=== PATIENT | female | born 1965 | race Two or more races ===

== ENCOUNTER 2024-05-09 17:37 | Emergency (ER) | payer MEDICAID, OTHER ==
[~2024-05-09] VITALS: Ht 162.6 cm; Wt 83.4 kg
[2024-05-09] MEDS ORDERED: cloNIDine HCL 0.1 MG TAB PO ONE (18:15)
[2024-05-09 18:18] VITALS: PULSE 91; RESP 18; O2SAT 97
[2024-05-09] MEDS: ALPRAZolam 0.5 MG TAB PO ONE (18:26)
[2024-05-09 18:45] LABS: Basophils # (auto) 0 10 ^3/uL (0-0.2); Basophils % (auto) 0.6 % (0.0-2.0); Eosinophils # (auto) 0 10 ^3/uL (0-0.8); Eosinophils % (auto) 0.4 % (0.0-7.0); Hematocrit 36.3 % (36.0-46.0); Hemoglobin 12.4 g/dL (12.2-16.2); Lymphocytes # (auto) 1.4 10 ^3/uL (0.4-5.4); Lymphocytes % (auto) 28.6 % (10.0-50.0); Mean Corpuscular Hemoglobin 30.8 pg (28.0-32.0); Mean Corpuscular Volume 90.7 fL (80.0-100.0); Monocytes # (auto) 0.4 10 ^3/uL (0-1.3); Monocytes % (auto) 8.4 % (0.0-12.0); Neutrophils # (auto) 2.9 10 ^3/uL (1.6-8.6); Nucleated Red Blood Cells % 0.1 %; Red Cell Distribution Width 15.3 % (11.8-14.3); White Blood Cell 4.7 10^3/uL (4.4-10.8)
[2024-05-09 19:03] LABS: Chloride 110 mmol/L (98-107); Potassium 3.6 mmol/L (3.5-5.1); Sodium 141 mmol/L (136-145)
[2024-05-09 19:04] LABS: Anion Gap 7 (5-15); Calcium 9.5 mg/dL (8.7-10.4); Carbon Dioxide 24 mmol/L (20-30)
[2024-05-09 19:09] LABS: BUN/Creatinine Ratio 10.4 (10.0-20.0); Blood Urea Nitrogen 11 mg/dL (9-23); Glucose 100 mg/dL (74-106)
[2024-05-09] MEDS: cloNIDine HCL 0.1 MG TAB PO ONE (22:04)
[2024-05-09 23:06] LABS: Urine Bacteria None Seen /hpf (None Seen)
[2024-05-09 23:16] LABS: Urine Blood Negative /uL (Negative); Urine Clarity Clear (Clear); Urine Color Light-Yellow (Yellow); Urine Mucus FEW (None Seen); Urine Protein, UAD 1+ (Negative); Urine Specific Gravity 1.022 (1.001-1.035); Urine Urobilinogen Normal (Negative); Urine WBC 1 /hpf (0 - 5); Urine pH 6.5 (5.0-9.0)
[2024-05-10] MEDS ORDERED: CLON0.2T PO (00:01)
[2024-05-10 00:12] VITALS: BP 138/93; PULSE 69; RESP 18; TEMP 98.2; O2SAT 97
== END 2024-05-10 00:12 | disposition home or self-care (01) ==
LOC: ER 17:52
DX: F12.929 Cannabis use, unspecified with intoxication, unspecified (principal); I10 Essential (primary) hypertension; E66.01 Morbid (severe) obesity due to excess calories; Z68.31 Body mass index [BMI] 31.0-31.9, adult
CPT/HCPCS: 36415; 80048; 81001; 84484; 85025

== ENCOUNTER 2024-08-03 17:33 | Emergency (ER) | payer MEDICAID ==
[~2024-08-03] VITALS: Ht 162.6 cm; Wt 86.5 kg
[~2024-08-03 17:33] MED LIST: CLON0.2T PO
[2024-08-03] MEDS: cloNIDine HCL 0.1 MG TAB PO ONE (17:50)
[2024-08-03] MEDS: cloNIDine HCL 0.1 MG TAB ONE (17:50)
[2024-08-03] MEDS ORDERED: AMLO1TAB22 PO (19:53)
[2024-08-03] MEDS ORDERED: HYDR12.59 PO (19:53)
[2024-08-03] MEDS ORDERED: ALLO300T2 PO (19:53)
[2024-08-03] MEDS ORDERED: COLC1CAP PO (19:53)
[2024-08-03 20:01] VITALS: BP 171/94; PULSE 62; RESP 18; TEMP 96.6; O2SAT 98
== END 2024-08-03 20:12 | disposition home or self-care (01) ==
LOC: ER 17:33
DX: M10.9 Gout, unspecified (principal); I10 Essential (primary) hypertension; R51.9 Headache, unspecified
CPT/HCPCS: 93005